=== PATIENT | male | born 1945 | race Caucasian/White ===

== ENCOUNTER 2023-03-21 06:57 | Day surgery (SDC) | payer MEDICARE, BC ==
[~2023-03-21 06:57] MED LIST: Lactated Ringers 1,000 ML IV SCH; Sodium Chloride 0.9% 10 ML Syringe FLUSH PRN; Sodium Chloride 0.9% 10 ML Syringe FLUSH SCH
[2023-03-21] MEDS ORDERED: Lidocaine 1% 6 ML ONE (07:36)
[2023-03-21] MEDS ORDERED: Propofol 200 MG/20 ML SDV ONE (07:36)
[2023-03-21] MEDS ORDERED: fentaNYL 100 MCG/2 ML SDV ONE (07:36)
[2023-03-21] MEDS ORDERED: Bupivacaine 0.5%/EPINEPHrine 1:200,000 50 ML MDV ONE (07:54)
[2023-03-21 10:17] VITALS: BP 123/64; PULSE 78
== END 2023-03-21 09:35 | disposition home or self-care (01) ==
LOC: JD.SDS 06:57
PROVIDERS: ATTEND Specialist
DX: Z12.11 Encounter for screening for malignant neoplasm of colon (principal); D12.2 Benign neoplasm of ascending colon; K64.4 Residual hemorrhoidal skin tags; K62.89 Other specified diseases of anus and rectum; K57.30 Diverticulosis of large intestine without perforation or abscess without bleeding; E78.00 Pure hypercholesterolemia, unspecified; I10 Essential (primary) hypertension; G47.30 Sleep apnea, unspecified; N40.0 Benign prostatic hyperplasia without lower urinary tract symptoms; F41.9 Anxiety disorder, unspecified; E11.9 Type 2 diabetes mellitus without complications; E55.9 Vitamin D deficiency, unspecified; Z88.1 Allergy status to other antibiotic agents; Z80.0 Family history of malignant neoplasm of digestive organs; Z79.4 Long term (current) use of insulin; Z79.899 Other long term (current) drug therapy; Z87.891 Personal history of nicotine dependence; Z98.890 Other specified postprocedural states
CPT/HCPCS: 45385; 46230; J2704; J3010; J3490; J7120; 00902; 99100